=== PATIENT | male | born 1950 | race Caucasian/White ===

== ENCOUNTER 2018-01-13 00:21 | Inpatient (IN) | payer BC, MEDICARE ==
[~2018-01-13] VITALS: Ht 185.4 cm; Wt 85.3 kg
--- NOTE | 2018-01-13 00:30 | NUR ---
67 YO MALE BB RA. PATIENT IS ALERT AND ORIENTED X 3, C/O ABD PAIN, NAUSEA/ VOMIT. DIARRHEA. PATIENT GOWNED,PLACED ON MERCHANDISING INTERN. SKLIN WARM AND DRY, RESP EVEN AND UNLABORED. WILL CONTINUE TO MONITOR
--- NOTE | 2018-01-13 00:37 | NUR ---
20G LEFT HAND IV STARTED. BLOOD SAMPLE OBTAINED AND SENT TO LAB
[2018-01-13] MEDS ORDERED: ONDANSETRON HCL/PF 4 MG/2 ML VIAL ONE (00:41)
[2018-01-13] MEDS ORDERED: MORPHINE SULFATE INJ 4 MG/ML DISP.SYRIN ONE (00:42)
[2018-01-13 00:45] LABS: HEMATOCRIT 46 % (39-51); HEMOGLOBIN 15.2 g/dL (13.5-17.5); LYMPHOCYTES # (AUTO) 1.1 /CMM (0.8-4.8); MEAN CORPUSCULAR HEMOGLOBIN 30 PG (26.0-33.0); MEAN CORPUSCULAR HGB CONC 33 g/dl (31.0-36.0); MEAN CORPUSCULAR VOLUME 91 fL (80-96); MONOCYTES # (AUTO) 0.6 /CMM (0.1-1.30); MONOCYTES % (AUTO) 2.7 % (2.0-12.0); NEUTROPHILS # (AUTO) 19.7 /CMM (1.8-8.9); NEUTROPHILS % (AUTO) 92.3 % (43.0-81.0); PLATELET COUNT (AUTO) 169 /CMM (150-450); RDW COEFFICIENT OF VARIATION 14.1 (11.5-15.0); RED BLOOD CELL COUNT(AUTO) 5.03 MIL/uL (4.5-6.0); WHITE BLOOD COUNT (AUTO) 21.3 K/uL (4.3-11.0)
[2018-01-13 00:58] LABS: INR 1.06 (0.87-1.13)
[2018-01-13] MEDS ORDERED: ONDANSETRON HCL/PF 4 MG/2 ML VIAL IVP ONE (01:00)
[2018-01-13] MEDS ORDERED: MORPHINE SULFATE INJ 2 MG/ML DISP.SYRIN IV ONE (01:00)
[2018-01-13] MEDS ORDERED: IV NS 0.9% 1,000 ML BAG IV ONE (01:00)
[2018-01-13 01:02] LABS: TROPONIN I 0.052 ng/mL (0.00-0.056)
[2018-01-13 01:27] LABS: BILIRUBIN,DIRECT 0.2 mg/dL (0.0-0.2); BILIRUBIN,TOTAL 0.6 mg/dL (0.2-1.0); CALCIUM, SERUM 8.5 mg/dL (8.5-10.1); CREATININE 1.9 mg/dL (0.6-1.3); POTASSIUM 4.1 mmol/L (3.5-5.1)
[2018-01-13] MEDS ORDERED: HYDROMORPHONE INJ 2 MG/ML DISP.SYRIN ONE (01:30)
[2018-01-13] MEDS ORDERED: methylPREDNISolone SOD SUCC 125 MG/2ML VIAL IV ONE (02:00)
[2018-01-13] MEDS ORDERED: HYDROMORPHONE 1 MG/1 ML DISP.SYRIN IV ONE (02:00)
[2018-01-13] MEDS ORDERED: LEVOFLOXACIN 750 MG /D5W 150ML 750 MG in PREMIX 1 EA IV SCH (02:00)
[2018-01-13] MEDS ORDERED: ALBUTEROL FS 2.5 MG/3 ML VIAL.NEB NEB ONE (02:00)
[2018-01-13] MEDS ORDERED: CEFTRIAXONE 1 G in IV D5W 50 ML IV ONE (02:00)
--- NOTE | 2018-01-13 03:14 | NUR ---
called [facility] hotline, awaiting call back from dr LENZ
--- NOTE | 2018-01-13 03:36 | NUR ---
CALLED FOR MALIA BED
[2018-01-13] MEDS ORDERED: methylPREDNISolone SOD SUCC 125 MG/2ML VIAL ONE (03:44)
[2018-01-13] MEDS ORDERED: LEVOFLOXACIN 750 MG /D5W 150ML 150 ML IV ONE (03:44)
[2018-01-13] MEDS ORDERED: CEFTRIAXONE 1 G VIAL ONE (03:44)
--- NOTE | 2018-01-13 03:45 | NUR ---
MALIA 108
--- NOTE | 2018-01-13 03:48 | NUR ---
RT CALLED FOR NEBS
[2018-01-13] MEDS ORDERED: ALBUTEROL FS 2.5 MG/3 ML VIAL.NEB ONE (03:52)
[2018-01-13] MEDS ORDERED: MAGNESIUM HYDROXIDE 30 ML UDC PO PRN (04:00)
[2018-01-13] MEDS ORDERED: MAG HYDROX/AL HYDROX/SIMETH 30 ML UDC PO PRN (04:00)
[2018-01-13] MEDS ORDERED: ACETAMINOPHEN 325 MG TABLET PO PRN (04:00)
[2018-01-13] MEDS ORDERED: ONDANSETRON HCL/PF 4 MG/2 ML VIAL IVP PRN (04:00)
[2018-01-13] MEDS ORDERED: Z GUARD REMEDY 2 OZ OINT TP PRN (04:00)
[2018-01-13] MEDS ORDERED: HYDROCODONE/APAP 5/325MG 1 EACH TABLET PO PRN (04:00)
--- NOTE | 2018-01-13 04:03 | NUR ---
REPORT WAS GIVEN TO MITESH HENSON FOR CHARU
[2018-01-13] MEDS: IV NS 0.9% 1,000 ML IV PRN ×2 (04:53→22:01)
[2018-01-13 05:00] VITALS: BP 94/51
[2018-01-13] MEDS ORDERED: LOPE2CAP PO (05:39)
[2018-01-13] MEDS ORDERED: ALPH1TAB9 PO (05:39)
[2018-01-13] MEDS ORDERED: RALT400T PO (05:39)
[2018-01-13] MEDS ORDERED: ASPI-1152 PO (05:39)
[2018-01-13] MEDS ORDERED: LISI1TAB9 PO (05:39)
[2018-01-13] MEDS ORDERED: RANI150T8 PO (05:39)
[2018-01-13] MEDS ORDERED: TRAZ-147 PO (05:39)
--- NOTE | 2018-01-13 07:30 | NUR ---
RN NOTE PT AOX4, AMBULATES, GETS SOB WITHOUT O2, SATURATION DROPS TO 85% ON ROOM AIR, ON NRB MASK, SATURATION 96%. CO PAIN IN HIS ABDOMEN, DENIES N/V AT THIS TIME. IVF RUNNING, CALL LIGHT WITHIN REACH, BED LOCKED AND LOW POSITION, WILL MONITOR PT CLOSELY.
[2018-01-13 08:00] VITALS: BP 96/56
[2018-01-13 12:00] VITALS: BP 115/56
[2018-01-13] MEDS ORDERED: LEVOFLOXACIN 500 MG /D5W 100ML 500 MG in PREMIX 1 EA IV ONE (13:00)
[2018-01-13 14:40] LABS: APPEARANCE,URINE CLEAR (CLEAR); BILIRUBIN,URINE NEGATIVE (NEGATIVE); BLOOD, URINE NEGATIVE Ery/uL (NEGATIVE); COLOR,URINE YELLOW (YELLOW); KETONES,URINE NEGATIVE (NEGATIVE); LEUKOCYTE ESTERASE ,URINE NEGATIVE (NEGATIVE); NITRITE, URINE NEGATIVE (NEGATIVE); PH,URINE 5.5 (5.0-8.0); PROTEIN,URINE 3+ mg/dl (NEGATIVE); UGLUCOSE NEGATIVE (NEGATIVE); UROBILINOGEN,URINE 0.2 EU/dL (0.2)
[2018-01-13 15:31] LABS: BACTERIA,URINE 1+ /HPF (None Seen); HYALINE CASTS, URINE Few /LPF (None Seen); RBC,URINE 0-2 /HPF (0-2); SQUAMOUS EPITHELIAL CELL,UR 0-2 /HPF (None Seen); WBC,URINE 0-2 /HPF (0-3)
[2018-01-13 16:00] VITALS: BP 124/74
[2018-01-13] MEDS ORDERED: HYDROCODONE/APAP 10/325MG 1 EA TABLET PO PRN (16:30)
[2018-01-13] MEDS: RALTEGRAVIR POTASSIUM 400 MG TABLET PO SCH (16:32)
[2018-01-13] MEDS: LOPERAMIDE HCL (2 MG CAP) 2 MG CAPSULE PO SCH (16:33)
[2018-01-13] MEDS ORDERED: CYCLOBENZAPRINE 10 MG TABLET PO PRN (18:00)
[2018-01-13 20:00] VITALS: BP 128/84
[2018-01-13] MEDS ORDERED: TRAZODONE 50 MG TABLET PO PRN (22:00)
[2018-01-14] VITALS (7 sets, daily range): BP systolic 88–132; BP diastolic 40–79
[2018-01-14 06:38] LABS: CREATININE 1.7 mg/dL (0.6-1.3); HEMATOCRIT 40 % (39-51); HEMOGLOBIN 13.4 g/dL (13.5-17.5); LYMPHOCYTES # (AUTO) 1.5 /CMM (0.8-4.8); LYMPHOCYTES % (AUTO) 4.7 % (20.0-44.0); MAGNESIUM 1.7 mg/dL (1.8-2.4); MEAN CORPUSCULAR HEMOGLOBIN 31 PG (26.0-33.0); MEAN CORPUSCULAR HGB CONC 33 g/dl (31.0-36.0); MEAN CORPUSCULAR VOLUME 92 fL (80-96); MONOCYTES # (AUTO) 1.4 /CMM (0.1-1.30); MONOCYTES % (AUTO) 4.3 % (2.0-12.0); NEUTROPHILS # (AUTO) 29.4 /CMM (1.8-8.9); PHOSPHORUS 2.8 mg/dL (2.5-4.9); PLATELET COUNT (AUTO) 158 /CMM (150-450); POTASSIUM 5.8 mmol/L (3.5-5.1); RDW COEFFICIENT OF VARIATION 15.1 (11.5-15.0); RED BLOOD CELL COUNT(AUTO) 4.37 MIL/uL (4.5-6.0)
[2018-01-14 06:54] LABS: WHITE BLOOD COUNT (AUTO) 32.3 K/uL (4.3-11.0)
--- NOTE | 2018-01-14 06:56 | NUR ---
sane rn notes received call from lab (Mirta Blanco). received critical result of WBC 32.3
--- NOTE | 2018-01-14 07:06 | NUR ---
english language learner teacher notes paged [facility]. Spoke with Dr. Tomas Jimenez. Relayed WBC 32.3. With no new orders for now per MD. MD verbalized he will come later and change the Antibiotic. will continue to monitor patient and endorse to next shift.
--- NOTE | 2018-01-14 07:46 | NUR ---
RN NOTES RECEIVED PT FROM MAT WORKER, A&0X3, ON 4L NC NO SOB OR DISTRESS NOTED. SR ON THE TELE SALINA HR 99. RFA 22G IV SITE INTACT WITH IVF AT 75ML/HR. BED LOCKED AND IN LOWEST POSITION, CALL LIGHT WITHIN REACH, SIDE RAILS UPX3, WILL CONT TO SALINA.
[2018-01-14] MEDS: RALTEGRAVIR POTASSIUM 400 MG TABLET PO SCH ×2 (08:31→16:29)
[2018-01-14] MEDS: LOPERAMIDE HCL (2 MG CAP) 2 MG CAPSULE PO SCH ×2 (08:32→16:29)
[2018-01-14] MEDS: ASPIRIN EC 81 MG TABLET.DR PO SCH (08:32)
[2018-01-14] MEDS ORDERED: HYDROCHLOROTHIAZIDE 25 MG TABLET PO SCH (09:00)
[2018-01-14] MEDS ORDERED: LISINOPRIL (10MG) 10 MG TABLET PO SCH (09:00)
[2018-01-14 09:51] LABS: BAND % (MANUAL) 9 % (0.0-5.0); LYMPHOCYTES % (MANUAL) 4 % (16-48); NEUTROPHILS % (MANUAL) 87 (42-76)
[2018-01-14] MEDS ORDERED: Magnesium 1GM/D5W 100ML PREMIX 100 ML IV SCH (10:40)
[2018-01-14] MEDS ORDERED: SODIUM POLYSTYRENE SULFONATE 15 G/60 ML BOTTLE PO ONE (12:30)
[2018-01-14] MEDS ORDERED: LEVOFLOXACIN 250 MG /D5W 50 ML 250 MG in PREMIX 1 EA IV SCH (13:00)
[2018-01-14] MEDS: IV NS 0.9% 1,000 ML IV PRN (16:28)
--- NOTE | 2018-01-14 18:48 | NUR ---
RN NOTES PT REMAINED IN STABLE CONDITION THROUGHOUT THE SHIFT, ALL NEEDS MET. WILL ENDORSE TO ONCOMING SHIFT.
--- NOTE | 2018-01-14 22:15 | NUR ---
RN NOTES Reported to Dr Rodriguez critical lab result procalcitonin, with no new orders. Charge nurse Rock made aware.
--- NOTE | 2018-01-14 22:18 | NUR ---
RN NOTES PREVIOUS CHARTING ERROR, WRONG PATIENT.
[2018-01-15] VITALS: BP 118/69
[2018-01-15 04:00] VITALS: BP 150/78
[2018-01-15 06:26] LABS: BASOPHILS % (AUTO) 0.2 % (0.0-2.0); EOSINOPHILS % (AUTO) 0.1 % (0.0-6.0); HEMATOCRIT 41 % (39-51); HEMOGLOBIN 13.4 g/dL (13.5-17.5); LYMPHOCYTES # (AUTO) 2.2 /CMM (0.8-4.8); LYMPHOCYTES % (AUTO) 12.2 % (20.0-44.0); MEAN CORPUSCULAR HEMOGLOBIN 31 PG (26.0-33.0); MEAN CORPUSCULAR HGB CONC 33 g/dl (31.0-36.0); MEAN CORPUSCULAR VOLUME 93 fL (80-96); MONOCYTES # (AUTO) 0.8 /CMM (0.1-1.30); MONOCYTES % (AUTO) 4.4 % (2.0-12.0); NEUTROPHILS % (AUTO) 83.1 % (43.0-81.0); PLATELET COUNT (AUTO) 160 /CMM (150-450); RDW COEFFICIENT OF VARIATION 15.2 (11.5-15.0); RED BLOOD CELL COUNT(AUTO) 4.39 MIL/uL (4.5-6.0)
[2018-01-15 06:42] LABS: CALCIUM, SERUM 8.4 mg/dL (8.5-10.1); CREATININE 1.6 mg/dL (0.6-1.3); MAGNESIUM 1.9 mg/dL (1.8-2.4); PHOSPHORUS 2.6 mg/dL (2.5-4.9); POTASSIUM 4.9 mmol/L (3.5-5.1)
--- NOTE | 2018-01-15 07:28 | NUR ---
RN NOTES No significant change in condition. Patient slept comfortably. No s/o pain or discomfort. All nursing needs attended. Will continue to monitor.
--- NOTE | 2018-01-15 07:49 | NUR ---
ROTATING EQUIPMENT ENGINEER NOTES RECEIVED PT FROM SUPERVISORY HISTORIAN, A&0X3, ON 4L NC NO SOB OR DISTRESS NOTED. SR ON THE TELE SALINA . RFA 22G IV SITE INTACT WITH IVF AT 75ML/HR. BED LOCKED AND IN LOWEST POSITION, CALL LIGHT WITHIN REACH, SIDE RAILS UPX3, WILL CONT TO SALINA CLOSELY ,NO SOB NO C\O PAIN AT THI TIME .
[2018-01-15 08:00] VITALS: BP 141/73
--- NOTE | 2018-01-15 08:30 | NUR ---
APPLIED PSYCHOLOGY CHAIR NOTE SEEN BY DR SANTANA AT BEDSIDE OK TO DISCHARGE HOME, ORDER CARRIED OUT
[2018-01-15] MEDS: LOPERAMIDE HCL (2 MG CAP) 2 MG CAPSULE PO SCH (08:44)
[2018-01-15] MEDS: RALTEGRAVIR POTASSIUM 400 MG TABLET PO SCH (08:44)
[2018-01-15] MEDS: ASPIRIN EC 81 MG TABLET.DR PO SCH (08:44)
[2018-01-15] MEDS ORDERED: LEVO500T75 PO (09:36)
--- NOTE | 2018-01-15 10:20 | NUR ---
ANIMAL BEHAVIOURIST NOTE PER DR MAX FUNG TO DISCHARGE HOME,DISCHARGE INSTRUCTION GIVEN TO PATIENT PX GIVEN ,UNDERSTOOD HL REMOVED ,TELE REMOVED , INSTRUCTED TO FOLLOW UP WITH PRIMARY CARE DOCTOR AND NEW PX AND POSSIBLE SIDE EFFECTS ,SPOUSE AT BEDSIDE Addendum: 01/15/18 at 1025 by ALEXANDRIA HAGAN RN SAT ON RA 95%
--- NOTE | 2018-01-15 10:50 | NUR ---
TRIPLE VALVE TESTER NOTE TAKEN TO LOBBY BY WALKING WITH STABLE CONDITION WALKED WITH YOUTH PASTOR STAND BY AND SPOUSE
== END 2018-01-15 10:38 | disposition home or self-care (01) | DRG 871 ==
LOC: ER 00:22 → TELE-TD 03:48 → TELE1 10:31
PROVIDERS: ADMIT Internal Medicine; ATTEND Internal Medicine
DX: A41.9 Sepsis, unspecified organism (principal); J15.6 Pneumonia due to other Gram-negative bacteria; J96.01 Acute respiratory failure with hypoxia; N17.9 Acute kidney failure, unspecified; N18.3 Chronic kidney disease, stage 3 (moderate); J15.9 Unspecified bacterial pneumonia; E86.0 Dehydration; I12.9 Hypertensive chronic kidney disease with stage 1 through stage 4 chronic kidney disease, or unspecified chronic kidney disease; N18.9 Chronic kidney disease, unspecified; Z92.3 Personal history of irradiation; Z90.49 Acquired absence of other specified parts of digestive tract; Z92.21 Personal history of antineoplastic chemotherapy; Z87.891 Personal history of nicotine dependence; Z80.1 Family history of malignant neoplasm of trachea, bronchus and lung; T38.0X5A Adverse effect of glucocorticoids and synthetic analogues, initial encounter; Y92.009 Unspecified place in unspecified non-institutional (private) residence as the place of occurrence of the external cause; I10 Essential (primary) hypertension; E87.5 Hyperkalemia; E83.42 Hypomagnesemia
CPT/HCPCS: 36415; 71045-TC; 80048-TC; 80076-TC; 81000-TC; 83605-TC; 83690-TC; 83735-TC; 83880; 84100-TC; 84484-TC; 85025-TC; 85730-TC; 87040-TC; 87081-TC; 87400; A4216; A4606; J0696; J1170; J1956; J2270; J2405; J2930; J3475; J7030; J7060; J7070; Z7610